=== PATIENT | female | born 1955 | race Caucasian/White ===

== ENCOUNTER → 2016-09-06 | Outpatient (CLI) | payer OTHER ==
[~2016-09-06] MED LIST: ASPIRIN81 M2 PO; BYSTOLIC 5 MG5 M1 PO; COLACE100 MG PO; FERREX-150 PLU150 MG PO; FOLIC ACID 1 MG1 MG PO; IRON325 PO; LOPRESSOR 50 MG50 M1; MULTIVITAMINS1 EAC7 PO; NOHOMEMEDICATIONS; NORCO 5-325 TA1 EACH PO; PREDNISONE 10 M10 MG PO; PROTONIX40 M2 PO; TOPROL XL50 MG PO
== END ==
LOC: RAD 03:06
DX: R92.8 Other abnormal and inconclusive findings on diagnostic imaging of breast (principal)

== ENCOUNTER → 2017-06-05 | Outpatient (CLI) | payer OTHER | LOC: ULTRA 14:14 | DX: N84.1 Polyp of cervix uteri (principal); N93.8 Other specified abnormal uterine and vaginal bleeding ==

== ENCOUNTER → 2017-09-19 | Outpatient (CLI) | payer OTHER | LOC: RAD 02:33 | DX: N60.02 Solitary cyst of left breast (principal); N60.01 Solitary cyst of right breast; R92.8 Other abnormal and inconclusive findings on diagnostic imaging of breast ==

== ENCOUNTER → 2017-11-06 | Outpatient (CLI) | payer OTHER ==
[2017-11-06 13:09] LABS: CREATININE 0.9 mg/dL (0.6-1.0)
== END ==
LOC: CAT 12:40
PROVIDERS: Nurse Practitioner
DX: J81.1 Chronic pulmonary edema (principal); K80.20 Calculus of gallbladder without cholecystitis without obstruction; I42.9 Cardiomyopathy, unspecified

== ENCOUNTER → 2019-01-11 | Outpatient (CLI) | payer BC | LOC: RAD 01:44 | DX: N60.01 Solitary cyst of right breast (principal); N60.02 Solitary cyst of left breast; Z80.3 Family history of malignant neoplasm of breast ==

== ENCOUNTER 2020-01-31 07:36 | Emergency (ER) | payer BC ==
[~2020-01-31] VITALS: Ht 160 cm; Wt 104.3 kg
[2020-01-31] MEDS ORDERED: ASPIR-TRIN325 MG PO (07:43)
[2020-01-31] MEDS ORDERED: TOPROL XL50 MG (07:44)
[2020-01-31 08:19] LABS: HEMATOCRIT 37.3 % (37.0-47.0); HEMOGLOBIN 12.5 gm/dL (12.0-15.0); MCH 28.4 pg (26.0-34.0); MCHC 33.4 g/dL (28.0-37.0); MCV 85.2 fL (80.0-100.0); RBC 4.39 mil/uL (4.20-5.00); RDW 13.6 % (10.5-14.5); WBC 11.7 thou/uL (4.0-11.0)
[2020-01-31 08:42] LABS: ANION GAP 10 mmol/L (7-16); BUN 11 mg/dL (7-18); CHLORIDE 106 mmol/L (98-107); CO2 26 mmol/L (21-32); CREATININE 0.9 mg/dL (0.6-1.0); GLUCOSE 146 mg/dL (74-106); SODIUM 142 mmol/L (136-145)
[2020-01-31 08:50] LABS: TROPONIN-I <0.06 ng/mL (<0.06)
--- NOTE | 2020-01-31 09:07 | EKG ---
[facility] [place] [address] ELECTROCARDIOGRAM REPORT Name: PEG MONTELONGO Room #: [facility].#: [id number] Admission: 01/31/20 Attend Phys: Discharge: Date of : 55 Report #: [id number] THIS REPORT FOR: cc: Carlitos Ramos Steven F. 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 : 1955 Requested By: Soren Lezama Order Number: [id number] MD: Javier Orellana Measurements Intervals [place] Rate: 87 P: 26 FL: 166 QRS: 21 QRSD: 75 T: 75 QT: 341 QTc: 411 Interpretive Statements Sinus rhythm Atrial premature complex LVH with secondary repolarization abnormality Compared to ECG 01/17/2012 08:19:03 Atrial premature complex(es) now present Left ventricular hypertrophy now present Early repolarization now present ST (T wave) deviation no longer present Electronically Signed On 01-31-2020 9:07:19 CDT by Javier Orellana [email or web address] <ELECTRONICALLY SIGNED> By: Javier Orellana MD, FACC 01/31/20906 6 6 Javier Orellana MD, FACC /EPI
[2020-01-31] MEDS ORDERED: LEVOFLOXACIN750 MG PO (09:17)
[2020-01-31 09:30] VITALS: BP 100/53
== END 2020-01-31 09:32 | disposition home or self-care (01) ==
LOC: ER 07:36
PROVIDERS: Emergency Medicine
DX: J18.9 Pneumonia, unspecified organism (principal); R11.2 Nausea with vomiting, unspecified; I10 Essential (primary) hypertension; Z79.82 Long term (current) use of aspirin; Z79.899 Other long term (current) drug therapy; Z20.828 Contact with and (suspected) exposure to other viral communicable diseases

== ENCOUNTER → 2020-03-06 | Outpatient (CLI) | payer BC ==
[~2020-03-06] MED LIST changes: +ASPIR-TRIN325 MG PO; +LEVOFLOXACIN750 MG PO; +TOPROL XL50 MG
== END ==
LOC: SJCVCIMAG 07:08
PROVIDERS: ATTEND Internal Medicine
DX: I08.3 Combined rheumatic disorders of mitral, aortic and tricuspid valves (principal); I11.9 Hypertensive heart disease without heart failure; I48.0 Paroxysmal atrial fibrillation; E78.00 Pure hypercholesterolemia, unspecified

== ENCOUNTER → 2020-08-29 | Outpatient (CLI) | payer BC | LOC: SJCVCIMAG 08:06 | PROVIDERS: ATTEND Internal Medicine | DX: I08.3 Combined rheumatic disorders of mitral, aortic and tricuspid valves (principal); I48.91 Unspecified atrial fibrillation ==

== ENCOUNTER → 2021-02-06 | Outpatient (CLI) | payer BC | LOC: BC 10:20 | PROVIDERS: ATTEND Neuromusculoskeletal Medicine & OMM | DX: Z12.31 Encounter for screening mammogram for malignant neoplasm of breast (principal); N64.89 Other specified disorders of breast ==

== ENCOUNTER 2021-06-02 18:01 | Inpatient (IN) | payer BC ==
[~2021-06-02] VITALS: Ht 157.5 cm; Wt 97.5 kg
[2021-06-02 18:35] LABS: ABSOLUTE NEUTROPHILS 7.7 thou/uL (1.4-8.2); BASOPHILS 0.3 % (0.0-2.0); EOSINOPHILS 0.2 % (0.0-3.0); HEMATOCRIT 38.1 % (37.0-47.0); HEMOGLOBIN 13.1 gm/dL (12.0-15.0); LYMPHOCYTES 5.5 % (24.0-44.0); MCH 28.8 pg (26.0-34.0); MCHC 34.5 g/dL (28.0-37.0); MCV 83.6 fL (80.0-100.0); MONOCYTES 4.5 % (1.0-8.0); PLATELET COUNT 289 thou/uL (150-400); POLYS 89.5 % (36.0-66.0); RBC 4.56 mil/uL (4.20-5.00); RDW 14.1 % (10.5-14.5); WBC 8.6 thou/uL (4.0-11.0)
[2021-06-02 18:50] LABS: CALCIUM 9.2 mg/dL (8.5-10.1); CREATININE 0.8 mg/dL (0.6-1.0); POTASSIUM 4.4 mmol/L (3.5-5.1)
[2021-06-02 19:01] LABS: ALBUMIN 3.6 g/dL (3.4-5.0); TOTAL BILIRUBIN 1.5 mg/dL (0.2-1.0); TOTAL PROTEIN 7.2 g/dL (6.4-8.2)
[2021-06-02 19:05] LABS: URINE BILIRUBIN NEGATIVE (Negative); URINE BLOOD TRACE (Negative); URINE CLARITY CLEAR; URINE COLOR YELLOW; URINE GLUCOSE-RANDOM* NEGATIVE (Negative); URINE KETONES NEGATIVE (Negative); URINE LEUKOCYTES-REFLEX 1+ (Negative); URINE NITRITE-REFLEX NEGATIVE (Negative); URINE PROTEIN (DIPSTICK) NEGATIVE (Negative); URINE UROBILINOGEN 0.2 E.U./dl (0.2-1.0)
[2021-06-02 19:15] LABS: SQUAMOUS 4-10 Moderate /LPF (0-3); URINE RBC 3-10 Few /HPF (NONE SEEN); URINE WBC-REFLEX >25 Many /HPF (0-5)
[2021-06-02 19:16] LABS: BACTERIA-REFLEX 1-9 Few /HPF (None Seen); CASTS None Seen /LPF (None Seen); CRYSTALS None Seen /LPF (None Seen)
[2021-06-02 22:26] VITALS: BP 154/58
[2021-06-02 22:55] VITALS: BP 154/58
[2021-06-02 23:38] VITALS: BP 106/58
--- NOTE | 2021-06-03 02:53 | NUR ---
PT ARRIVED ON UNIT AT 2330 FROM ER. ADMITTED WITH CHOLECYSTITIS. PLAN FOR LAP COLLEEN 06/03. MORPHINE PROVIDING PAIN RELIEF. ZOFRAN NAUSEA RELIEF. RESTING COMFORTABLY. NO NEEDS VOICED. CALL LIGHT WITHIN REACH. FREQUENT OBSERVATION.
[2021-06-03 08:00] VITALS: BP 112/43
[2021-06-03 15:24] VITALS: BP 130/71
[2021-06-03 16:24] VITALS: BP 130/71
--- NOTE | 2021-06-04 08:12 | EKG ---
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 : 1955 Requested By: Ximena Peters Order Number: [id number] MD: Florin Springer Measurements Intervals [place] Rate: 70 P: 24 [place]: 143 QRS: 34 QRSD: 94 T: 66 QT: 395 QTc: 427 Interpretive Statements Sinus rhythm Abnormal R-wave progression, early transition LVH by voltage Compared to ECG 01/31/2020 08:27:24 Atrial premature complex(es) no longer present Electronically Signed On 06-04-2021 8:12:10 [employer]EEPING [employer]OUND [employer]ENDER by Florin Springer [email or web address] <ELECTRONICALLY SIGNED> By: Florin Springer MD, [facility] [id number] 16 Florin Springer MD, [facility] /EPI
== END 2021-06-03 17:10 | disposition home or self-care (01) | DRG 446 ==
LOC: ER 18:01 → EROBS 21:32 → 4S 23:36
PROVIDERS: Emergency Medicine; ADMIT Surgery; ATTEND Surgery
DX: K80.70 Calculus of gallbladder and bile duct without cholecystitis without obstruction (principal); I10 Essential (primary) hypertension; E78.5 Hyperlipidemia, unspecified; E78.00 Pure hypercholesterolemia, unspecified; E66.9 Obesity, unspecified; Z53.8 Procedure and treatment not carried out for other reasons; Z20.822 Contact with and (suspected) exposure to COVID-19; Z68.39 Body mass index [BMI] 39.0-39.9, adult; Z81.2 Family history of tobacco abuse and dependence; Z79.899 Other long term (current) drug therapy; Z79.82 Long term (current) use of aspirin
CPT/HCPCS: 10102; 50010; 50101; 58574; 65130; 65131; 70005